=== PATIENT | male | born 2000 | race African-American/Black ===

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

== ENCOUNTER 2019-05-31 16:13 | Emergency (ER) | payer MEDICAID ==
[~2019-05-31] VITALS: Ht 190.5 cm; Wt 81.6 kg
[2019-05-31 16:30] VITALS: BP 118/60
[2019-05-31 16:59] LABS: Eosinophils # (auto) 0.1 10 ^3/uL (0-0.8)
[2019-05-31 17:15] LABS: Lymphocytes # (auto) 1.3 10 ^3/uL (0.4-5.4); Neutrophils # (auto) 5.6 10 ^3/uL (1.6-8.6)
[2019-05-31 17:16] LABS: Basophils # (auto) 0.1 10 ^3/uL (0-0.2); Basophils % (auto) 0.7 % (0.0-2.0); Hematocrit 51.2 % (41.0-53.0); Lymphocytes % (auto) 17.1 % (10.0-50.0); Mean Corpuscular Hemoglobin 30.2 pg (28.0-32.0); Mean Corpuscular Hgb Conc. 35.2 g/dL (32.0-36.0); Mean Corpuscular Volume 85.7 fL (80.0-100.0); Monocytes # (auto) 0.5 10 ^3/uL (0-1.3); Monocytes % (auto) 6.3 % (0.0-12.0); Neutrophils % (auto) 74.9 % (37.0-80.0); Nucleated Red Blood Cells % 0.2 %; Platelet Count (auto) 203 10^3/uL (140-450); Red Blood Cells 5.98 10^6/uL (4.5-5.90); Red Cell Distribution Width 14.5 % (11.8-14.3); White Blood Cell 7.5 10^3/uL (4.4-10.8)
[2019-05-31 17:18] LABS: Albumin 4.4 g/dL (3.4-5.0); Anion Gap 7 (5-15); Blood Urea Nitrogen 12 mg/dL (7-18); Calcium 9.2 mg/dL (8.5-10.1); Carbon Dioxide 28 mmol/L (21-32); Chloride 103 mmol/L (98-107); Glucose 168 mg/dL (74-106); Sodium 138 mmol/L (136-145)
[2019-05-31 17:24] LABS: Alanine Aminotransferase 23 U/L (16-61); Alkaline Phosphatase 72 U/L (45-117); Aspartate Aminotransferase 19 U/L (15-37); BUN/Creatinine Ratio 11.7; Bilirubin, Total 0.6 mg/dL (0.2-1.0); GFR African American 117 mL/min; GFR Non-African American 97 mL/min; Total Protein 8.3 g/dL (6.4-8.2)
== END 2019-05-31 22:00 | disposition left against medical advice (07) ==
LOC: ER 16:13
DX: R07.89 Other chest pain (principal)
CPT/HCPCS: 36415; 71046; 80053; 84484; 85025